=== PATIENT | male | born 1960 | race Caucasian/White ===

== ENCOUNTER 2020-01-13 07:58 | Inpatient (IN) ==
[2020-01-13] MEDS ORDERED: CeFAZolin Syr 2,000MG/20 ML 2,000 MG/20 ML SYRINGE IVPB ONE (08:14)
[2020-01-13] MEDS ORDERED: Ringers Solution, Lactated 1,000 ML IVC SCH ×2 (08:15→11:57)
[2020-01-13] MEDS ORDERED: *HR* Midazolam HCl 2 MG/2 ML VIAL ONE (08:28)
[2020-01-13] MEDS ORDERED: Lidocaine -MPF 4% 5 ML AMPUL ONE (08:28)
[2020-01-13] MEDS ORDERED: Lidocaine -MPF 2% 2 ML VIAL ONE (08:28)
[2020-01-13] MEDS ORDERED: Dexamethasone 4 MG/ML VIAL ONE (08:28)
[2020-01-13] MEDS ORDERED: Ondansetron 4 MG/2 ML VIAL ONE (08:28)
[2020-01-13] MEDS ORDERED: *HR* FentaNYL (PF) 100 MCG/2 ML VIAL ONE (08:28)
[2020-01-13] MEDS ORDERED: *HR* Propofol 200 MG/20 ML VIAL IVP ONE (08:28)
[2020-01-13] MEDS ORDERED: *HR* Succinylcholine 200 MG/10 ML VIAL IVP ONE (08:28)
[2020-01-13] MEDS ORDERED: *HR* HYDROmorphone PF 0.5 MG/0.5 ML SYRINGE IVP PRN (08:30)
[2020-01-13] MEDS ORDERED: *HR* Promethazine 25 MG/ML VIAL IVP PRN (08:30)
[2020-01-13] MEDS ORDERED: *HR* OxyCODONE Immed Rel 5 MG TABLET PO PRN ×2 (08:30→12:15)
[2020-01-13] MEDS ORDERED: Ondansetron 4 MG/2 ML VIAL IVP ONE (08:30)
[2020-01-13] MEDS ORDERED: Ropivacaine/PF 0.5% 30 ML VIAL ONE (08:48)
[2020-01-13] MEDS ORDERED: ROPIVACAINE/PF/NS 0.25% 1 EACH SYRINGE INTRAART ONE (08:48)
[2020-01-13 08:55] LABS: Basophils % 0.4 %; Eosinophils # 0.2 K/mcL (0.0-0.6); Eosinophils % 1.9 %; Hematocrit 43.8 % (37.5-50.1); Hemoglobin 14.1 g/dL (12.9-16.9); Immature Granulocytes % 0.3 % (0-4); Lymphocytes # 2.7 K/mcL (0.6-4.6); Lymphocytes % 26.9 %; Mean Corpuscular HGB Conc 32.2 g/dL (31.6-35.5); Mean Corpuscular Hemoglobin 29.8 pg (28.0-33.3); Mean Corpuscular Volume 92.6 fL (83.0-100.0); Mean Platelet Volume 9.6 fL (9.4-12.4); Monocytes % 9.5 %; Neutrophils # 6.2 K/mcL (1.6-8.9); Platelet Count 301 K/mcL (140-400); Red Blood Count 4.73 M/mcL (4.19-5.50); Red Cell Distribution Width 13.2 % (11.5-14.5); White Blood Count 10.1 K/mcL (4.3-11.1)
[2020-01-13] MEDS ORDERED: Ethanol\\Acetic Acid\\Na Ace\\Ben 1,000 ML IRRIG.SOLN IR ONE (08:55)
[2020-01-13 08:57] LABS: Hematocrit 44.1 % (37.5-50.1); Hemoglobin 14.3 g/dL (12.9-16.9)
[2020-01-13] MEDS ORDERED: Acetaminophen IV 1,000 MG/100 ML INFUS..BTL IVPB ONE (09:02)
[2020-01-13] MEDS ORDERED: Vancomycin 1,000 MG VIAL ONE (09:13)
[2020-01-13 09:14] LABS: BUN/Creatinine Ratio 24 (6-26); Blood Urea Nitrogen 21 mg/dL (6-20); Calcium 9.2 mg/dL (8.6-10.3); Carbon Dioxide 26 mEq/L (23-29); Chloride 104 mEq/L (98-107); Glucose 105 mg/dL (70-105); Osmolality,Calculated 285 (280-300); Potassium 3.8 mEq/L (3.5-5.1); Sodium 136 mEq/L (136-145); eGFR For African Americans > 60 (> 60); eGFR For Non-African Americans > 60 (> 60)
[2020-01-13] MEDS ORDERED: EPHEDrine 50 MG/ML VIAL ONE (09:53)
[2020-01-13] MEDS ORDERED: *HR* PHENYLEPHRINE 1,000 MCG/10 ML SYRINGE IVP ONE ×2 (09:59→10:28)
[2020-01-13] MEDS ORDERED: Sennosides 8.6 MG TABLET PO PRN (11:57)
[2020-01-13] MEDS ORDERED: *HR* Dextrose 50 % in Water (Vial) 50 ML VIAL IVP PRN (11:57)
[2020-01-13] MEDS ORDERED: MOM Conc 10 ML UD.LIQ PO PRN (11:57)
[2020-01-13] MEDS ORDERED: Insulin LISPRO 300 UNITS/3 ML VIAL SQ SCH ×2 (11:57→21:00)
[2020-01-13] MEDS ORDERED: *HR* OxyCODONE Immed Rel 15 MG TABLET PO PRN (11:57)
[2020-01-13] MEDS ORDERED: Ondansetron 4 MG/2 ML VIAL IVP PRN (11:57)
[2020-01-13] MEDS ORDERED: D5% in Water 1,000 ML IVC PRN (11:57)
[2020-01-13] MEDS ORDERED: Naloxone 0.4 MG/ML INJ IVP PRN (11:57)
[2020-01-13] MEDS ORDERED: Dextrose Gel 15 GM/37.5 ML TUBE PO PRN ×2 (11:57)
[2020-01-13] MEDS: tiZANidine 4 MG TABLET PO SCH ×3 (12:28→15:10)
[2020-01-13] MEDS: Gabapentin 300 MG CAPSULE PO SCH ×3 (12:28→15:10)
[2020-01-13 13:56] VITALS: BP 152/94
[2020-01-13] MEDS ORDERED: CeFAZolin 2 GM/120 ML BAG IVPB SCH ×2 (14:00→16:00)
[2020-01-13] MEDS ORDERED: *HR* Enoxaparin 30 MG/0.3 ML SYRINGE SQ SCH ×2 (18:00)
== END 2020-01-13 15:30 | disposition home or self-care (01) | DRG 483 ==
LOC: SAMDAY 07:58 → 3NENU 11:48
PROVIDERS: ADMIT Orthopaedic Surgery; ATTEND Orthopaedic Surgery